=== PATIENT | female | born 1995 | race Caucasian/White ===

== ENCOUNTER 2018-01-21 11:20 | Emergency (ER) | payer OTHER ==
[~2018-01-21] VITALS: Ht 149.9 cm; Wt 49.0 kg
[2018-01-21] MEDS ORDERED: IV NORMAL SALINE 1000ML BAG 1,000 ML IV ONE (12:45)
[2018-01-21] MEDS ORDERED: IOHEXOL 300 MG/ML 100ML VIAL. IV ONE (13:15)
[2018-01-21] MEDS ORDERED: CONTRAST GIVEN. MC PRN (13:15)
[2018-01-21 13:41] LABS: BASO % 1 % (0-3); EOS % 1 % (0-3); HEMATOCRIT 33.9 % (36.0-47.0); HEMOGLOBIN 11.6 g/dL (12.0-15.5); LYMPH # 1.1 x10^3/uL (1.0-4.8); LYMPH % 31 % (24-48); MEAN CORPUSCULAR HEMOGLOBIN 27 pg (25-35); MEAN CORPUSCULAR HGB CONC 34 g/dL (31-37); MEAN CORPUSCULAR VOLUME 79 fL (79-100); MONO # 0.5 x10^3/uL (0.0-1.1); MONO % 13 % (0-9); NEUT % 55 % (31-73); PLATELET COUNT 263 x10^3/uL (140-400); RED BLOOD COUNT 4.27 x10^6/uL (3.50-5.40); RED CELL DISTRIBUTION WIDTH 14.3 % (11.5-14.5); WHITE BLOOD COUNT 3.7 x10^3/uL (4.0-11.0)
[2018-01-21 13:51] LABS: CALCIUM 9.2 mg/dL (8.5-10.1); CREATININE 0.6 mg/dL (0.6-1.0); GFR 127.5; POTASSIUM 3.9 mmol/L (3.5-5.1)
[2018-01-21 13:57] LABS: ALBUMIN 3.7 g/dL (3.4-5.0); ALBUMIN/GLOBULIN RATIO 0.9 (1.0-1.7); TOTAL BILIRUBIN 0.3 mg/dL (0.2-1.0); TOTAL PROTEIN 7.6 g/dL (6.4-8.2)
--- NOTE | 2018-01-21 14:02 | PHYS DOC ---
Past Medical History Past Medical History: Other Additional Past Medical Histor: ANOREXIA Past Surgical History: No Surgical History Alcohol Use: None Drug Use: None Adult General Chief Complaint Chief Complaint: NAUSEA/VOMITING/DIARRHA HPI HPI Patient is a 22 year old female who presents with umbilical pain 1 week. She rates pain a 2 out of 10 and states does not radiate. She has been vomiting states she's vomited 3 times today. Patient states she only every other day. Has not seen a doctor in years. Patient states she takes no medications has no past medical history and has no known drug allergies. Review of Systems Review of Systems Constitutional: Denies fever or chills [] Eyes: Denies change in visual acuity, redness, or eye pain [] HENT: Denies nasal congestion or sore throat [] Respiratory: Denies cough or shortness of breath [] Cardiovascular: No additional information not addressed in HPI [] GI: Epigastric abdominal pain, nausea, vomiting, Denies bloody stools or diarrhea [] : Denies dysuria or hematuria [] Musculoskeletal: Denies back pain or joint pain [] Integument: Denies rash or skin lesions [] Neurologic: Denies headache, focal weakness or sensory changes [] All other systems were reviewed and found to be within normal limits, except as documented in this note. Current Medications Current Medications Current Medications Medications (Trade) Dose Ordered Sig/David Start Time Stop Time Status Last Admin Dose Admin Info (CONTRAST GIVEN -- Rx MONITORING) 1 each PRN DAILY PRN 01/21/18 13:15 01/23/18 13:14 Iohexol (Omnipaque 300 Mg/ml) 75 ml 1X ONCE 01/21/18 13:15 01/21/18 13:16 DC 01/21/18 13:15 75 ML Sodium Chloride 1,000 ml @ 1,000 mls/hr 1X ONCE 01/21/18 12:45 01/21/18 13:44 DC 01/21/18 13:30 1,000 MLS/HR Allergies Allergies Allergies Coded Allergies Type Severity Reaction Last Updated Verified No Known Drug Allergies 01/21/18 No Physical Exam Physical Exam Constitutional: Well developed, well nourished, no acute distress, non-toxic appearance. [] HENT: Normocephalic, atraumatic, bilateral external ears normal, oropharynx moist, no oral exudates, nose normal. [] Eyes: PERRLA, EOMI, conjunctiva normal, no discharge. [] Neck: Normal range of motion, no tenderness, supple, no stridor. [] Cardiovascular:Heart rate regular rhythm, no murmur [] Lungs & Thorax: Bilateral breath sounds clear to auscultation [] Abdomen: Bowel sounds normal, soft, no tenderness, no masses, no pulsatile masses. [] Skin: Warm, dry, no erythema, no rash. [] Back: No tenderness, no CVA tenderness. [] Extremities: No tenderness, no cyanosis, no clubbing, ROM intact, no edema. [] Neurologic: Alert and oriented X 3, normal motor function, normal sensory function, no focal deficits noted. [] Psychologic: Affect normal, judgement normal, mood normal. [] Current Patient Data Vital Signs Vital Signs Date Time Temp Pulse Resp B/P (MAP) Pulse Ox O2 Delivery O2 Flow Rate FiO2 01/21/18 11:44 98.0 102 18 129/85 (100) 100 Room Air 98.0 Lab Values Laboratory Tests Test 01/21/18 13:31 01/21/18 13:35 POC Urine HCG, Qualitative Hcg negative (Negative) White Blood Count 3.7 x10^3/uL (4.0-11.0) L Red Blood Count 4.27 x10^6/uL (3.50-5.40) Hemoglobin 11.6 g/dL (12.0-15.5) L Hematocrit 33.9 % (36.0-47.0) L Mean Corpuscular Volume 79 fL (79-100) Mean Corpuscular Hemoglobin 27 pg (25-35) Mean Corpuscular Hemoglobin Concent 34 g/dL (31-37) Red Cell Distribution Width 14.3 % (11.5-14.5) Platelet Count 263 x10^3/uL (140-400) Neutrophils (%) (Auto) 55 % (31-73) Lymphocytes (%) (Auto) 31 % (24-48) Monocytes (%) (Auto) 13 % (0-9) H Eosinophils (%) (Auto) 1 % (0-3) Basophils (%) (Auto) 1 % (0-3) Neutrophils # (Auto) 2.0 x10^3uL (1.8-7.7) Lymphocytes # (Auto) 1.1 x10^3/uL (1.0-4.8) Monocytes # (Auto) 0.5 x10^3/uL (0.0-1.1) Eosinophils # (Auto) 0.0 x10^3/uL (0.0-0.7) Basophils # (Auto) 0.0 x10^3/uL (0.0-0.2) Sodium Level 141 mmol/L (136-145) Potassium Level 3.9 mmol/L (3.5-5.1) Chloride Level 103 mmol/L (98-107) Carbon Dioxide Level 28 mmol/L (21-32) Anion Gap 10 (6-14) Blood Urea Nitrogen 15 mg/dL (7-20) Creatinine 0.6 mg/dL (0.6-1.0) Estimated GFR (Cockcroft-Gault) 127.5 BUN/Creatinine Ratio 25 (6-20) H Glucose Level 88 mg/dL (70-99) Calcium Level 9.2 mg/dL (8.5-10.1) Total Bilirubin 0.3 mg/dL (0.2-1.0) Aspartate Amino Transferase (AST) 19 U/L (15-37) Alanine Aminotransferase (ALT) 13 U/L (14-59) L Alkaline Phosphatase 38 U/L (46-116) L Total Protein 7.6 g/dL (6.4-8.2) Albumin 3.7 g/dL (3.4-5.0) Albumin/Globulin Ratio 0.9 (1.0-1.7) L Lipase 116 U/L (73-393) Laboratory Tests 01/21/18 13:35 Laboratory Tests 01/21/18 13:35 EKG EKG [] Radiology/Procedures Radiology/Procedures CT ABD PELV Impressions: [facility] [address] [place] [address] IMAGING REPORT Signed PATIENT: SHERICE MERCADO ACCOUNT: [id number] : 1995 LOCATION: ER AGE: 22 SEX: F EXAM STATUS: REG ER ORD. PHYSICIAN: KEVEN NG APRN REASON: ABDOMINAL PAIN PROCEDURE: CT ABD PELV W/ IV CONTRST ONLY EXAM: Abdomen and pelvis CT with intravenous contrast. HISTORY: Pain and nausea. TECHNIQUE: Computed tomographic images of the abdomen and pelvis were obtained following the administration of 75 cc Omnipaque 300 intravenous contrast. Multiplanar reformatting was performed. *One or more of the following individualized dose reduction techniques were utilized for this examination: 1. Automated exposure control. 2. Adjustment of the mA and/or kV according to patient size. 3. Use of iterative reconstruction technique. COMPARISON: None. FINDINGS: Evaluation of the lower thorax is unremarkable. There is periportal edema. There is a 6 mm cyst within the lateral right hepatic lobe. The gallbladder, pancreas, adrenal glands and kidneys are unremarkable. The spleen is normal in size. There is mild thickening involving the distal sigmoid and rectal wall. There are prominent bilateral perirectal lymph nodes, the largest of which measures 1.6 cm. There is moderate colonic stool. The appendix is not well seen due to multiple adjacent small bowel loops and the right ovary. The bladder is unremarkable. There are multiple bilateral ovarian follicles with a suspected dominant involuting right ovarian follicular cyst measuring 2.7 cm. There is a small amount of nonspecific pelvic free fluid. There are multiple prominent mesenteric and retroperitoneal lymph nodes, within physiologic limits. There are prominent left inguinal lymph nodes, the largest of which measures 3.4 cm in long axis. No suspicious osseous lesion is seen. IMPRESSION: 1. Periportal edema. This can be due to rapid bolus patient hydration. Correlate with liver function laboratory values to exclude an alternative etiology such as hepatitis. There is a small hepatic cyst. 2. Distal sigmoid and rectal wall thickening with multiple prominent surrounding lymph nodes. This is difficult to assess given a small amount of surrounding pelvic free fluid. Correlate for possible colitis/proctitis of inflammatory or infectious etiologies. 3. Multiple prominent ovarian follicles with a suspected dominant involuting right follicular cyst measuring 2.7 cm. 4. Prominent left inguinal lymph nodes. This may be reactive in etiology. Electronically signed by: Shanel Aguirre MD (01/21/2018 2:39 PM) [id number] DICTATED and SIGNED BY: SHANEL AGUIRRE MD DATE: 01/21/18 1433 Course & Med Decision Making Course & Med Decision Making Patient is a 22 year old female who presents with umbilical pain 1 week. She rates pain a 2 out of 10 and states does not radiate. She has been vomiting states she's vomited 3 times today. Patient states she only every other day. Has not seen a doctor in years. Patient states she takes no medications has no past medical history and has no known drug allergies. Abdomen is soft and tender at epigastric area. Patient states that times it is a sharp pain. Denies dysuria. Denies vaginal discharge or bleeding. alert and oriented. Skin is pink warm and dry. States has regular bowel movements. Denies chest pain, soa. CT abd pelv shows 1. Periportal edema. This can be due to rapid bolus patient hydration. Correlate with liver function laboratory values to exclude an alternative etiology such as hepatitis. There is a small hepatic cyst.2. Distal sigmoid and rectal wall thickening with multiple prominent surrounding lymph nodes. This is difficult to assess given a small amount of surrounding pelvic free fluid. Correlate for possible colitis/proctitis of inflammatory or infectious etiologies.3. Multiple prominent ovarian follicles with a suspected dominant Involuting right follicular cyst measuring 2.7 cm.4. Prominent left inguinal lymph nodes. This may be reactive in etiology. Patient states that she can't urinate again because she is to nervous. Patient is refusing a straight catheter. Patient has attempted 3 times used restroom. Patient to follow up with GI on wednesday. [] Dragon Disclaimer Dragon Disclaimer This electronic medical record was generated, in whole or in part, using a voice recognition dictation system. Departure Departure Impression: Primary Impression: Abdominal pain Disposition: HOME, SELF-CARE Condition: STABLE Referrals: NO PCP (PCP) MAGY FARMER MD Patient Instructions: Abdominal Pain Additional Instructions: Call GI doctor on Wednesday to schedule a appointment. Problem Qualifiers Primary Impression: Abdominal pain Abdominal location: periumbilical Qualified Codes: R10.33 - Periumbilical pain KEVEN NG BEHAVIOR ANALYST Jan 21, 2018 14:02
[2018-01-21 14:07] VITALS: BP 127/77
--- NOTE | 2018-01-21 14:43 | RAD ---
EXAM: Abdomen and pelvis CT with intravenous contrast. HISTORY: Pain and nausea. TECHNIQUE: Computed tomographic images of the abdomen and pelvis were obtained following the administration of 75 cc Omnipaque 300 intravenous contrast. Multiplanar reformatting was performed. *One or more of the following individualized dose reduction techniques were utilized for this examination: 1. Automated exposure control. 2. Adjustment of the mA and/or kV according to patient size. 3. Use of iterative reconstruction technique. COMPARISON: None. FINDINGS: Evaluation of the lower thorax is unremarkable. There is periportal edema. There is a 6 mm cyst within the lateral right hepatic lobe. The gallbladder, pancreas, adrenal glands and kidneys are unremarkable. The spleen is normal in size. There is mild thickening involving the distal sigmoid and rectal wall. There are prominent bilateral perirectal lymph nodes, the largest of which measures 1.6 cm. There is moderate colonic stool. The appendix is not well seen due to multiple adjacent small bowel loops and the right ovary. The bladder is unremarkable. There are multiple bilateral ovarian follicles with a suspected dominant involuting right ovarian follicular cyst measuring 2.7 cm. There is a small amount of nonspecific pelvic free fluid. There are multiple prominent mesenteric and retroperitoneal lymph nodes, within physiologic limits. There are prominent left inguinal lymph nodes, the largest of which measures 3.4 cm in long axis. No suspicious osseous lesion is seen. IMPRESSION: 1. Periportal edema. This can be due to rapid bolus patient hydration. Correlate with liver function laboratory values to exclude an alternative etiology such as hepatitis. There is a small hepatic cyst. 2. Distal sigmoid and rectal wall thickening with multiple prominent surrounding lymph nodes. This is difficult to assess given a small amount of surrounding pelvic free fluid. Correlate for possible colitis/proctitis of inflammatory or infectious etiologies. 3. Multiple prominent ovarian follicles with a suspected dominant involuting right follicular cyst measuring 2.7 cm. 4. Prominent left inguinal lymph nodes. This may be reactive in etiology. Electronically signed by: Shanel Jones MD (01/21/2018 2:39 PM) [id number]
== END 2018-01-21 16:05 | disposition home or self-care (01) ==
LOC: ER 11:20
DX: R10.33 Periumbilical pain (principal); R11.2 Nausea with vomiting, unspecified; R10.13 Epigastric pain
CPT/HCPCS: 36415; 74177; 80053; 81025; 83690; 85025; 96360; 96361; 99284; J7030; Q9967

== ENCOUNTER → 2018-03-02 | Day surgery (SDC) | payer OTHER ==
[~2018-03-02] MED LIST: HYDROmorphone 2 MG/ML VIAL IV PRN; IV RINGERS,LACTATED 1000ML 1,000 ML IV SCH; LIDOCAINE 1% PF 2 ML VIAL. ID PRN; MORPHINE SULFATE 4 MG/ML VIAL. IV PRN; ONDANSETRON PF 4 MG/2 ML VIAL. IV PRN; PROCHLORPERAZINE 10 MG/2 ML VIAL. IV PRN; PROPOFOL 40 ML IV ONE; fentaNYL PF VIAL 100 MCG/2 ML VIAL IV PRN
[2018-03-02 08:58] VITALS: BP 105/65
--- NOTE | 2018-03-03 12:10 | PATHOLOGY ---
[facility] Accession Number: [id number] . 01 Material submitted: . RANDOM COLON BIOPSIES . 01 Clinical history: . Rectal bleeding . 02 Diagnosis: Colonic mucosa, random colon biopsies: - Focal mild active colitis without granulomas or specific features. See comment. . (JPM:charmaine; 03/03/2018) QMS/03/03/2018 . 02 Comment: Sections of the random colon biopsy reveal multiple segments of colonic mucosa. A few of the biopsy segments show an increase of chronic inflammatory cells with scattered admixed neutrophils within the lamina propria. There is focal mild crypt architectural distortion. There are no granulomas or specific features. The remainder of the biopsy segments appear relatively normal. The differential diagnosis includes an infectious colitis and focal chronic inflammatory bowel disease. There is no evidence of a collagenous colitis or lymphocytic colitis. Correlate clinically. (JPM:charmaine; 03/03/2018) . 02 Electronically signed: . Sujit Ferraro MD, Pathologist NPI- [id number] . 01 Gross description: . Received in formalin labeled "Milady Saleem, random colon biopsies, are multiple segments of pedroza soft tissue measuring 1.6 x 0.4 x 0.1 cm in aggregate dimensions. The specimen is filtered and entirely submitted in cassette A1. (TSD; 03/02/2018) TOB/TOB . 02 Microscopic: . . . 02 Pathologist provided ICD-10: K52.9 . 02 CPT . 942918 Specimen Comment: A courtesy copy of this report has been sent to Specimen Comment: [phone]. Specimen Comment: Report sent to Performed at: [address], [place], [place] [id number] MD Earl Peñaloza MD Phone: [phone] Performed at: [address] [id number] MD Sujit Ferraro MD Phone: [phone]
== END | disposition home or self-care (01) ==
LOC: SURG 07:36
PROVIDERS: ATTEND Internal Medicine Gastroenterology
DX: K64.0 First degree hemorrhoids (principal); K52.9 Noninfective gastroenteritis and colitis, unspecified; K62.5 Hemorrhage of anus and rectum; F41.9 Anxiety disorder, unspecified; K21.9 Gastro-esophageal reflux disease without esophagitis
CPT/HCPCS: 45380; 88305; J2704

== ENCOUNTER 2018-12-31 17:34 | Emergency (ER) | payer OTHER ==
[~2018-12-31] VITALS: Ht 149.9 cm; Wt 48.1 kg
[2018-12-31 17:40] VITALS: BP 119/69
[2018-12-31 18:11] LABS: BILIRUBIN,URINE NEGATIVE (NEG); CLARITY,URINE TURBID; COLOR,URINE YELLOW; NITRITE,URINE POSITIVE (NEG); PROTEIN,URINE NEGATIVE (NEG-TRACE)
[2018-12-31 18:15] LABS: AMORPHOUS SEDIMENT,UR PRESENT /HPF; BACTERIA,URINE MANY /HPF (0-FEW); RBC,URINE 0 /HPF (0-2); SQUAMOUS EPITHELIAL CELL,UR MOD /LPF
[2018-12-31] MEDS ORDERED: SULF1TAB24 PO (18:29)
--- NOTE | 2018-12-31 18:30 | PHYS DOC ---
Past Medical History Past Medical History: Other Additional Past Medical Histor: ANOREXIA Past Surgical History: No Surgical History Alcohol Use: None Drug Use: None Adult General Chief Complaint Chief Complaint: ABDOMINAL PAIN HPI HPI Patient is a 23 year old female with no significant medical history who p resents to the ED today complaining of intermittent episodes of generalized abdominal pain rated at 6 out of 10 described as burning sensation mostly on the upper abdomen for the last 3 weeks. Patient is concerned she could be though she had her last menstrual cycle December 21, 2018. She feels this cycle was shoulder than normal. Patient denies anything specifically exacerbating or relieving abdominal pain. Review of Systems Review of Systems Constitutional: Denies fever or chills [] Eyes: Denies change in visual acuity, redness, or eye pain [] HENT: Denies nasal congestion or sore throat [] Respiratory: Denies cough or shortness of breath [] Cardiovascular: No additional information not addressed in HPI [] GI: Reports generalized abdominal pain and concern for , denies nausea, vomiting, bloody stools or diarrhea [] : Denies dysuria or hematuria [] Musculoskeletal: Denies back pain or joint pain [] Integument: Denies rash or skin lesions [] Neurologic: Denies headache, focal weakness or sensory changes [] All other systems were reviewed and found to be within normal limits, except as documented in this note. Allergies Allergies Allergies Coded Allergies Type Severity Reaction Last Updated Verified No Known Drug Allergies 03/02/18 No Physical Exam Physical Exam Constitutional: Well developed, well nourished, no acute distress, non-toxic appearance. [] HENT: Normocephalic, atraumatic, bilateral external ears normal, oropharynx moist, no oral exudates, nose normal. [] Eyes: PERRLA, EOMI, conjunctiva normal, no discharge. [] Neck: Normal range of motion, no tenderness, supple, no stridor. [] Cardiovascular:Heart rate regular rhythm, no murmur [] Lungs & Thorax: Bilateral breath sounds clear to auscultation [] Abdomen: Bowel sounds normal, soft, no tenderness, no masses, no pulsatile masses. [] Skin: Warm, dry, no erythema, no rash. [] Back: No tenderness, no CVA tenderness. [] Extremities: No tenderness, no cyanosis, no clubbing, ROM intact, no edema. [] Neurologic: Alert and oriented X 3, normal motor function, normal sensory function, no focal deficits noted. [] Psychologic: Affect normal, judgement normal, mood normal. [] Current Patient Data Vital Signs Vital Signs Date Time Temp Pulse Resp B/P (MAP) Pulse Ox O2 Delivery O2 Flow Rate FiO2 12/31/18 17:40 98.1 124 18 119/69 (86) 100 Room Air 98.1 Lab Values Laboratory Tests Test 12/31/18 18:05 Urine Collection Type Unknown Urine Color Yellow Urine Clarity Turbid Urine pH 7.0 Urine Specific [place] >=1.030 Urine Protein Negative mg/dL (NEG-TRACE) Urine Glucose (UA) Negative mg/dL (NEG) Urine Ketones (Stick) Negative mg/dL (NEG) Urine Blood Negative (NEG) Urine Nitrite Positive (NEG) Urine Bilirubin Negative (NEG) Urine Urobilinogen Dipstick 2.0 mg/dL (0.2 mg/dL) Urine Leukocyte Esterase Small (NEG) Urine RBC 0 /HPF (0-2) Urine WBC 5-10 /HPF (0-4) Urine Squamous Epithelial Cells Mod /LPF Urine Amorphous Sediment Present /HPF Urine Bacteria Many /HPF (0-FEW) Urine Mucus Mod /LPF POC Urine HCG, Qualitative Hcg negative (Negative) EKG EKG [] Radiology/Procedures Radiology/Procedures [] Course & Med Decision Making Course & Med Decision Making Pertinent Labs and Imaging studies reviewed. (See chart for details) This is a 23-year-old female patient presenting to the ED today complaining of generalized abdominal pain and concerned she could be . Symptoms for 3 weeks. Last menstrual cycle December 21, 2018. Negative urine hCG. Positive for UTI. Discharged Bactrim for 3 days. Follow-up with PCP in 1-2 weeks. Dragon Disclaimer Dragon Disclaimer This electronic medical record was generated, in whole or in part, using a voice recognition dictation system. Departure Departure Impression: Primary Impression: Urinary tract infection Disposition: 01 HOME, SELF-CARE Condition: STABLE Referrals: NO PCP (PCP) Follow-up with your doctor in 1-2 weeks Patient Instructions: Urinary Tract Infection Additional Instructions: You were evaluated in the emergency room and noted to have urinary tract infection, your test is negative. We put you on antibiotics, ensure you complete them. Follow-up with your doctor in 1-2 weeks. Scripts Sulfamethoxazole/Trimethoprim (BACTRIM DS TABLET) 1 Each Tablet 1 TAB PO BID for 6 Days, #3 TAB 0 Refills Prov: CLARISSA RAPP APRN 12/31/18 Problem Qualifiers Primary Impression: Urinary tract infection Urinary tract infection type: site unspecified Hematuria presence: without hematuria Qualified Codes: N39.0 - Urinary tract infection, site not specified CLARISSA RAPP APRN Dec 31, 2018 18:30
== END 2018-12-31 18:40 | disposition home or self-care (01) ==
LOC: ER 17:34
DX: N39.0 Urinary tract infection, site not specified (principal)
CPT/HCPCS: 81001; 81025; 99283